=== PATIENT | male | born 1960 | race Caucasian/White ===

== ENCOUNTER 2025-06-30 18:25 | Emergency (ER) | payer OTHER, SELFPAY ==
[2025-06-30] VITALS (16 sets, daily range): BP systolic 138–195; BP diastolic 92–99; PULSE 62–96; RESP 13–22; TEMP 37; O2SAT 94–98; BMI 24.4
--- NOTE | 2025-06-30 18:37 | DI.RAD.S_ITS ---
PROCEDURE: XR CHEST 1V INDICATIONS: Chest Pain TECHNIQUE: One view of the chest was acquired. COMPARISON: None. FINDINGS: Surgical changes and devices: None. Lungs and pleura: Lungs are clear. No pleural effusions or pneumothorax. Mediastinum: Mediastinal contours appear normal. Heart size is normal. Bones and chest wall: No suspicious bony lesions. Overlying soft tissues appear unremarkable. IMPRESSION: No acute cardiopulmonary abnormality is seen. Dictated by: Messi Glynn M.D. on 06/30/2025 at 19:25 Approved by: Messi Glynn M.D. on 06/30/2025 at 19:25
--- NOTE | 2025-06-30 18:37 | EKG_ITS ---
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
[2025-06-30] MEDS: ASPIRIN 81 MG CHEW TAB 324 MG PO (18:40)
[2025-06-30 19:16] LABS: Add Manual Diff / Slide Review NO; Hematocrit 43.2 % (41-53); Hemoglobin 14.7 g/dL (13.5-17.5); Lymphocytes Absolute Auto 2200 /uL (1100-4500); Mean Corpuscular HGB Conc 33.9 % (30-36); Mean Corpuscular Hemoglobin 29.9 PG (26-34); Mean Corpuscular Volume 88.1 fL (80-100); Platelet Count 265 X10^3/uL (150-400)
[2025-06-30 19:32] LABS: INR 1.0 (0.9-1.3); Prothrombin Time 10.8 SECONDS (9.4-12.5)
[2025-06-30 19:35] LABS: Alanine Aminotransferase 40 IU/L (<50); Albumin 4.7 g/dL (3.5-5.0); Albumin Globulin Ratio 1.6 (1.0-2.8); Alkaline Phosphatase 56 U/L (38-126); Blood Urea Nitrogen 15 mg/dL (9-20); Calcium 8.9 mg/dL (8.4-10.2); Carbon Dioxide 26 mmol/L (22-32); Chloride 102 mmol/L (98-107); Creatine Kinase 96 U/L (55-170); Estimated Glomerular Filt Rate > 60 mL/min (>60); Globulin 3.0 g/dL (1.7-4.1); Glucose 108 mg/dL (70-99); HEMOLYSIS 26 (0-50); Lipase 96 U/L (23-300); Magnesium 1.7 mg/dL (1.6-2.3); PTT Partial Thromboplastin Tim 26 SECONDS (25.1-36.5); Potassium 3.7 mmol/L (3.4-5.1); Sodium 138 mmol/L (137-145); Total Protein 7.7 g/dL (6.3-8.2)
[2025-06-30 19:47] LABS: NT-proBNP (BNP-Adult 18+) 24 pg/mL (<125); Troponin I < 0.012 ng/mL (0.01-0.034)
--- NOTE | 2025-06-30 21:36 | ED.CHESTPAIN ---
HPI - Chest Pain General Chief Complaint: Chest Pain Stated Complaint: Tightness in chest/tingling in arms/shaky Time Seen by Provider: 06/30/25 18:27 Source: patient Mode of arrival: Ambulatory Limitations: no limitations History of Present Illness HPI narrative: 64-year-old male with no known history of coronary artery disease, has previous coronary scanning that showed some kind of vascular problem but no coronary interventions, history of hiatal hernia. Since 6:00 p.m. today he has had chest discomfort that was more intense earlier today, nonpleuritic, not associated with nausea or vomiting or diaphoresis, nonradiating. Over the last couple of weeks he has had it 2 episodes of tunnel vision like sensation that he might pass out, with fast heart rate sensation subsequent to onset of symptoms, did not actually pass out, no specific treatments. Specific workup for this problem. You recently had driving from the [place] and vacation area. No calf pain or leg swelling problems. No history of blood clots to legs or lungs. No history of fast or slow heart rate problems or abnormal heart rhythms known. No history of stroke or TIA symptoms. Related Data Allergies Allergy/AdvReac Type Severity Reaction Status Date / Time No Known Allergies Allergy Verified 06/30/25 18:37 Patient History Social History Smoking Status: Never smoker Smoking Status: Never smoker Exam Narrative Exam Narrative: GENERAL: Well-developed patient, in mild distress. HEAD: Atraumatic. Normocephalic. EYES: Pupils equal round and reactive. Extraocular motions intact. No scleral icterus. No injection or drainage. ENT: Nose without bleeding, purulent drainage. Throat without erythema, tonsillar hypertrophy or exudate. Airway patent. NECK: Trachea midline. Non tender CARDIOVASCULAR: Regular rate and rhythm without murmurs, gallops, or rubs. RESPIRATORY: Clear to auscultation. Breath sounds equal bilaterally. No wheezes, rales, or rhonchi. GASTROINTESTINAL: Abdomen soft, non-tender, nondistended. EXTREMITIES: No edema or joint tenderness. BACK: Nontender without deformity or crepitance. No flank tenderness. NEURO: AOx3. Motor functions grossly nonfocal. SKIN: No rash or erythema of visible areas Initial Vital Signs Initial Vital Signs: Vital Signs Temperature 98.6 F 06/30/25 18:33 Pulse Rate 96 H 06/30/25 18:33 Respiratory Rate 18 06/30/25 18:33 Blood Pressure 180/98 H 06/30/25 18:33 Pulse Oximetry 98 06/30/25 18:33 Oxygen Delivery Method Room Air 06/30/25 18:33 Scores HEART Score Heart Score history: Slightly Suspicious Heart Score EKG: Normal Heart Score Age: 45-64 years old Heart Score risk factors: > 3 risk factors or hx of atherosclerotic disease Heart Score troponin: < or = to normal limit Heart Score Total: 3 Course Orders Ordered: ED Orders 06/30/25 21:34 Troponin I Stat 06/30/25 22:38 CT head/brain wo con Stat 06/30/25 22:39 CT abdomen pelvis w con Stat CT angio chest PE protocol Stat Discontinued Medications Aspirin (Aspirin 81 Mg Chew Tab) 324 mg PO NOW ONE Stop: 06/30/25 18:38 Last Admin: 06/30/25 18:40 Dose: 324 mg Documented By: MATT Sodium Chloride (Normal Saline 0.9%) 1,000 mls @ 500 mls/hr IV BOLUS ONE Stop: 07/01/25 00:38 Last Infusion: 07/01/25 00:59 Dose: Infused Documented By: Admin: 06/30/25 23:14 Dose: 500 mls/hr Documented By: JULIANNE Pantoprazole Sodium (Pantoprazole 40 Mg Vial) 40 mg IV NOW ONE Stop: 06/30/25 22:46 Last Admin: 06/30/25 23:14 Dose: 40 mg Documented By: JULIANNE Vital Signs Vital signs: Vital Signs - 8 hr 06/30/25 21:00 06/30/25 21:00 06/30/25 21:10 Pulse Rate 68 Respiratory Rate 18 Blood Pressure 157/92 H 162/96 H Pulse Oximetry 97 06/30/25 21:10 06/30/25 21:20 06/30/25 21:20 Pulse Rate 64 64 Respiratory Rate 14 14 Blood Pressure 154/93 H Pulse Oximetry 97 97 06/30/25 21:30 06/30/25 21:30 06/30/25 21:40 Pulse Rate 66 Respiratory Rate 14 Blood Pressure 157/96 H 151/93 H Pulse Oximetry 97 06/30/25 21:40 06/30/25 21:50 06/30/25 21:50 Pulse Rate 63 62 Respiratory Rate 15 16 Blood Pressure 149/94 H Pulse Oximetry 94 94 06/30/25 22:00 06/30/25 22:00 06/30/25 22:10 Pulse Rate 66 65 Respiratory Rate 16 13 Blood Pressure 145/95 H Pulse Oximetry 95 96 06/30/25 22:10 06/30/25 22:20 06/30/25 22:20 Pulse Rate 64 Respiratory Rate 15 Blood Pressure 150/95 H 138/95 H Pulse Oximetry 97 06/30/25 22:30 06/30/25 23:12 06/30/25 23:22 Pulse Rate 66 74 67 Respiratory Rate 18 21 22 Blood Pressure Pulse Oximetry 96 96 06/30/25 23:22 06/30/25 23:30 06/30/25 23:30 Pulse Rate 65 Respiratory Rate 20 Blood Pressure 154/99 H 152/92 H Pulse Oximetry 97 07/01/25 00:00 07/01/25 00:00 07/01/25 00:21 Pulse Rate 65 Respiratory Rate 17 Blood Pressure 146/95 H 155/81 H Pulse Oximetry 96 07/01/25 00:21 07/01/25 00:30 07/01/25 00:31 Pulse Rate 59 L 64 65 Respiratory Rate 18 23 21 Blood Pressure Pulse Oximetry 96 96 97 07/01/25 00:31 Pulse Rate Respiratory Rate Blood Pressure 157/93 H Pulse Oximetry MDM - Chest Pain Lab Data Attestation: I reviewed the patient's lab results. Lab results narrative: White blood cell count 5900, hemoglobin 14.5, platelets adequate. Glucose 108. Normal renal function, serum CO2, electrolytes. Liver functions and lipase normal. Troponin negative/unmeasurable x2 interval studies. BNP normal. 06/30/25 18:50 06/30/25 18:50 Labs: Lab Results 06/30/25 06/30/25 Range/Units 18:50 21:34 WBC 5.9 (4.5-11.0) X10^3/uL RBC 4.91 (4.5-5.9) X10^6/uL Hgb 14.7 (13.5-17.5) g/dL Hct 43.2 (41-53) % MCV 88.1 (80-100) fL MCH 29.9 (26-34) PG MCHC 33.9 (30-36) % RDW 13.6 (11.6-14.8) % Plt Count 265 (150-400) X10^3/uL Neut % (Auto) 48.5 L (50-75) % Lymph % (Auto) 36.9 (25-40) % [place] % (Auto) 9.5 (3-14) % Eos % (Auto) 3.7 (2-4) % Baso % (Auto) 1.4 (0-2) % Neut # (Auto) 2900 (8854-8593) /uL Lymph # (Auto) 2200 (0842-7192) /uL [place] # (Auto) 600 (0-900) /uL Eos # (Auto) 200 (0-450) /uL Baso # (Auto) 100 (0-100) /uL PT 10.8 (9.4-12.5) SECONDS INR 1.0 (0.9-1.3) APTT 26 (25.1-36.5) SECONDS D-Dimer 314 (<500) ng/ml Sodium 138 (137-145) mmol/L Potassium 3.7 (3.4-5.1) mmol/L Chloride 102 (98-107) mmol/L Carbon Dioxide 26 (22-32) mmol/L BUN 15 (9-20) mg/dL Creatinine 0.89 (0.66-1.25) mg/dL Estimated GFR > 60 (>60) mL/min BUN/Creatinine Ratio 16.9 (6-22) Glucose 108 H (70-99) mg/dL Calcium 8.9 (8.4-10.2) mg/dL Magnesium 1.7 (1.6-2.3) mg/dL Total Bilirubin 0.6 (0.2-1.3) mg/dL AST 40 (17-59) IU/L ALT 40 (<50) IU/L Alkaline Phosphatase 56 (38-126) U/L Total Creatine Kinase 96 (55-170) U/L Troponin I < 0.012 < 0.012 (0.01-0.034) ng/mL NT-Pro-B Natriuret Pep 24 (<125) pg/mL Total Protein 7.7 (6.3-8.2) g/dL Albumin 4.7 (3.5-5.0) g/dL Globulin 3.0 (1.7-4.1) g/dL Albumin/Globulin Ratio 1.6 (1.0-2.8) Lipase 96 (23-300) U/L Imaging Data Chest x-ray: Radiologist's Impression: [address] [address] XRay Report Signed Patient: Rocky Pérez MR#: [id number] : 1960 Acct:[id number] Age/Sex: 64 / M Date of Service: 06/30/25 Loc: ED Accession Number: [id number] Procedure: XR chest 1V Ordering Provider: Delroy Madden MD PROCEDURE: XR CHEST 1V INDICATIONS: Chest Pain TECHNIQUE: One view of the chest was acquired. COMPARISON: None. FINDINGS: Surgical changes and devices: None. Lungs and pleura: Lungs are clear. No pleural effusions or pneumothorax. Mediastinum: Mediastinal contours appear normal. Heart size is normal. Bones and chest wall: No suspicious bony lesions. Overlying soft tissues appear unremarkable. IMPRESSION: No acute cardiopulmonary abnormality is seen. Dictated by: Messi Glynn M.D. on 06/30/2025 at 19:25 Approved by: Messi Glynn M.D. on 06/30/2025 at 19:25 CT scan - head: Radiologist's Impression: [address] [address] [address] Scan Report Signed Patient: Rocky Pérez MR#: [id number] : 1960 Acct:[id number] Age/Sex: 64 / M Date of Service: 06/30/25 Loc: ED Accession Number: [id number] Procedure: CT head/brain wo con Ordering Provider: Delroy Madden MD PROCEDURE: CT HEAD/BRAIN WO CON INDICATIONS: intermittent near syncope, vision changes TECHNIQUE: Noncontrast 4.5 mm thick angled axial sections acquired from the foramen magnum to the vertex, with coronal and sagittal reformats. For radiation dose reduction, the following was used: automated exposure control, adjustment of mA and/or kV according to patient size. COMPARISON: None. FINDINGS: Image quality: Diagnostic. CSF spaces: Basal cisterns are patent. No extra-axial fluid collections. Ventricles are normal in size and shape. Brain: No midline shift. No intracranial mass effect or hemorrhage. [place]-white matter interface is normal. Skull and face: Calvarium and visualized facial bones are intact, without suspicious lesions. Sinuses: Visualized sinuses and mastoids are clear. IMPRESSION: No acute intracranial pathology. Dictated by: Pham Ham M.D. on 06/30/2025 at 23:23 Approved by: Pham Ham M.D. on 06/30/2025 at 23:23 CT scan - abdomen/pelvis: Radiologist's Impression: [address] [address] [address] Scan Report Signed Patient: Rocky Pérez MR#: [id number] : 1960 Acct:[id number] Age/Sex: 64 / M Date of Service: 06/30/25 Loc: ED Accession Number: [id number] Procedure: CT abdomen pelvis w con Ordering Provider: Delroy Madden MD PROCEDURE: CT ABDOMEN PELVIS W CON INDICATIONS: chest abd pain TECHNIQUE: After the administration of intravenous contrast, axial sections acquired from the lung bases to the pubic symphysis. Coronal and sagittal reformats were performed. For radiation dose reduction, the following was used: automated exposure control, adjustment of mA and/or kV according to patient size. COMPARISON: [facility], CT, CT ANGIO CHEST PE PROTOCOL, 06/30/2025, 22:44. FINDINGS: Image quality: Diagnostic. Lower Chest: No significant findings. ABDOMEN: Liver: Low-attenuation hepatic foci. The larger lesions are most suggestive of simple cysts. The smaller foci are too small to definitively characterize. Steatosis. Gallbladder: No radiopaque gallstones or wall thickening. Biliary ducts: No biliary dilation. Pancreas: No ductal dilation. Spleen: Size is within normal limits. Adrenal Glands: No adrenal nodules. Kidneys and Ureters: No hydronephrosis. No solid mass. No complex renal cystic lesion which requires follow up. Stomach and Bowel: Normal colonic caliber, without significant wall thickening. Hiatal hernia. Moderate colonic stool. No obstruction. Colonic diverticula are present without inflammatory change. Peritoneum: No abnormal intraperitoneal fluid. No free air. Ventral Wall: No significant ventral hernia. Abdominal Nodes: No retroperitoneal or mesenteric adenopathy by size criteria. Vessels: Aorta and inferior vena cava are normal in size. PELVIS: Pelvic Organs: Unremarkable. Bladder: No bladder wall thickening, accounting for underdistention. Pelvic Nodes: No enlarged lymph nodes. Miscellaneous: No inguinal hernias are seen. Bones: No aggressive osseous abnormality. IMPRESSION: Diverticulosis. Moderate colonic stool without obstruction. Dictated by: Pham Ham M.D. on 06/30/2025 at 23:25 Approved by: Pham Ham M.D. on 06/30/2025 at 23:28 CTA chest PE protocol.: Radiologist's Impression: [address] [address] [address] Scan Report Signed Patient: Rocky Pérez MR#: [id number] : 1960 Acct:[id number] Age/Sex: 64 / M Date of Service: 06/30/25 Loc: ED Accession Number: [id number] Procedure: CT angio chest PE protocol Ordering Provider: Delroy Madden MD PROCEDURE: CT ANGIO CHEST PE PROTOCOL INDICATIONS: presyncope, recent long driving, eval for PE TECHNIQUE: After the administration of intravenous contrast, 2 mm thick sections acquired from the pulmonary apices to the posterior costophrenic angles. 3-dimensional maximum intensity projection (MIP) coronal and sagittal reformats were then acquired through the thorax. For radiation dose reduction, the following was used: automated exposure control, adjustment of mA and/or kV according to patient size. COMPARISON: None. FINDINGS: Image quality: Diagnostic. Pulmonary arteries: Pulmonary arteries are normal in size, and demonstrate no intraluminal filling defects to suggest central pulmonary embolism. Lower Neck: No enlarged lymph nodes. Thyroid: No thyroid nodules which require sonographic follow up, per consensus guidelines. Axillae: No enlarged lymph nodes. Chest Wall: Unremarkable. Bones: Unremarkable. Lungs and Pleura: No pneumothorax or pleural effusions. No consolidation or suspicious nodules. Heart: Heart size is normal. No pericardial effusion. Thoracic Vessels: No aortic aneurysm. Mediastinum and Aretha: Anterior mediastinal soft tissue nodule measuring 1.3 cm. No priors. Esophagus: No wall thickening. Mild hiatal hernia. Upper Abdomen: Low-attenuation hepatic focus likely simple cyst. IMPRESSION: No pulmonary embolus. 1.3 cm soft tissue nodule within the anterior mediastinum. This may represent a prominent lymph node. However, given location other etiologies including malignancy cannot be excluded. Short interval follow-up, biopsy or PET scan is recommended. Dictated by: Pham Ham M.D. on 06/30/2025 at 23:23 Approved by: Pham Ham M.D. on 06/30/2025 at 23:25 ECG Data Attestation: I personally reviewed and interpreted this ECG as follows: Interpretation: 1845, sinus rhythm with occasional PVCs, nonspecific ST-T changes. Ventricular response rate 89. IL 134, QRS 84, QTC 455. MDM Narrative Medical decision making narrative: 64-year-old male with history of hiatal hernia, no known CAD, has chest discomfort since earlier today, recent drive from [facility], no leg pain or swelling symptoms. Also has had intermittent 2 weeks of fast heart rate sensation and near-syncope with tunnel vision like changes. No headaches. Nonfocal neuro exam. Afebrile, sirs screen negative. Given oral aspirin. HEART Score = 3. EKG without obvious ischemic changes, sinus rhythm. Chest x-ray no acute changes. See radiology report. Lab data: White blood cell count 5900, hemoglobin 14.5, platelets adequate. Glucose 108. Normal renal function, serum CO2, electrolytes. Liver functions and lipase normal. Troponin negative/unmeasurable x2 interval studies. BNP normal. CT head noncontrast study. No acute changes. See radiology report. CT angiogram chest, no PE, no aortic syndrome, no acute changes. Mediastinal node/small mass noted, further workup as an outpatient. See radiology report. CT abdomen and pelvis, no acute changes. See radiology report. Copy of reports provided to patient with discussion. Further workup as an outpatient for now. Consider cardiac monitoring. 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 Could consider also further neuro testing as needed, that might include CTA head and neck vessels, MRI of the brain. Discharged home with family. Follow up with Cardiology as above, and with PCP, to expedite further workup as an outpatient. Return precautions discussed. Discharge Plan Departure Patient Disposition: Home Clinical Impression: Chest pain, Heart palpitations, Near syncope Activity Restrictions/Additional Instructions: Chest pain earlier today unclear etiology, no known coronary artery disease. Also intermittent last couple of weeks tunnel vision like sensation with fast heart rate palpitations. No actual passing out episode. EKG and serial blood tests tonight not sure suggestive of heart attack, normal sinus rhythm noted. Imaging studies chest x-ray, CT head, CT angiogram chest, CT abdomen and pelvis showed no acute changes. You did have a fair amount of colonic stool, consider laxative therapy, unclear if this is related to any of your symptoms however. You also had a mediastinal mass 1.3 cm small, that might be a nodule or benign lesion, but could be early cancerous change, further workup as an outpatient. Consider further workup as an outpatient, local cardiology contact information provided. You might end up getting echocardiogram and/or cardiac stress testing. Consider ambulatory cardiac heart rate/rhythm monitoring, which your primary care doctor can order for you. Consider further neurological workup as an outpatient as needed. Consider taking aspirin daily until further workup coordinated. Return earlier to this/nearest emergency department for any change worsening symptoms or any concerns prior. Referrals: Marcell Patten MD [Physician, Cardiology] Viktoria Resendez PA-C [Primary Care Provider, Medical] Stand Alone Forms: Patient Portal/API
[2025-06-30 22:25] LABS: Troponin I < 0.012 ng/mL (0.01-0.034)
--- NOTE | 2025-06-30 22:38 | DI.CT.S_ITS ---
PROCEDURE: CT HEAD/BRAIN WO CON INDICATIONS: intermittent near syncope, vision changes TECHNIQUE: Noncontrast 4.5 mm thick angled axial sections acquired from the foramen magnum to the vertex, with coronal and sagittal reformats. For radiation dose reduction, the following was used: automated exposure control, adjustment of mA and/or kV according to patient size. COMPARISON: None. FINDINGS: Image quality: Diagnostic. CSF spaces: Basal cisterns are patent. No extra-axial fluid collections. Ventricles are normal in size and shape. Brain: No midline shift. No intracranial mass effect or hemorrhage. [place]- white matter interface is normal. Skull and face: Calvarium and visualized facial bones are intact, without suspicious lesions. Sinuses: Visualized sinuses and mastoids are clear. IMPRESSION: No acute intracranial pathology. Dictated by: Pham Ham M.D. on 06/30/2025 at 23:23 Approved by: Pham Ham M.D. on 06/30/2025 at 23:23
--- NOTE | 2025-06-30 22:39 | DI.CT.S_ITS ---
PROCEDURE: CT ABDOMEN PELVIS W CON INDICATIONS: chest abd pain TECHNIQUE: After the administration of intravenous contrast, axial sections acquired from the lung bases to the pubic symphysis. Coronal and sagittal reformats were performed. For radiation dose reduction, the following was used: automated exposure control, adjustment of mA and/or kV according to patient size. COMPARISON: [facility], CT, CT ANGIO CHEST PE PROTOCOL, 06/30/2025, 22:44. FINDINGS: Image quality: Diagnostic. Lower Chest: No significant findings. ABDOMEN: Liver: Low-attenuation hepatic foci. The larger lesions are most suggestive of simple cysts. The smaller foci are too small to definitively characterize. Steatosis. Gallbladder: No radiopaque gallstones or wall thickening. Biliary ducts: No biliary dilation. Pancreas: No ductal dilation. Spleen: Size is within normal limits. Adrenal Glands: No adrenal nodules. Kidneys and Ureters: No hydronephrosis. No solid mass. No complex renal cystic lesion which requires follow up. Stomach and Bowel: Normal colonic caliber, without significant wall thickening. Hiatal hernia. Moderate colonic stool. No obstruction. Colonic diverticula are present without inflammatory change. Peritoneum: No abnormal intraperitoneal fluid. No free air. Ventral Wall: No significant ventral hernia. Abdominal Nodes: No retroperitoneal or mesenteric adenopathy by size criteria. Vessels: Aorta and inferior vena cava are normal in size. PELVIS: Pelvic Organs: Unremarkable. Bladder: No bladder wall thickening, accounting for underdistention. Pelvic Nodes: No enlarged lymph nodes. Miscellaneous: No inguinal hernias are seen. Bones: No aggressive osseous abnormality. IMPRESSION: Diverticulosis. Moderate colonic stool without obstruction. Dictated by: Pham Ham M.D. on 06/30/2025 at 23:25 Approved by: Pham Ham M.D. on 06/30/2025 at 23:28
--- NOTE | 2025-06-30 22:39 | DI.CT.S_ITS ---
PROCEDURE: CT ANGIO CHEST PE PROTOCOL INDICATIONS: presyncope, recent long driving, eval for PE TECHNIQUE: After the administration of intravenous contrast, 2 mm thick sections acquired from the pulmonary apices to the posterior costophrenic angles. 3-dimensional maximum intensity projection (MIP) coronal and sagittal reformats were then acquired through the thorax. For radiation dose reduction, the following was used: automated exposure control, adjustment of mA and/or kV according to patient size. COMPARISON: None. FINDINGS: Image quality: Diagnostic. Pulmonary arteries: Pulmonary arteries are normal in size, and demonstrate no intraluminal filling defects to suggest central pulmonary embolism. Lower Neck: No enlarged lymph nodes. Thyroid: No thyroid nodules which require sonographic follow up, per consensus guidelines. Axillae: No enlarged lymph nodes. Chest Wall: Unremarkable. Bones: Unremarkable. Lungs and Pleura: No pneumothorax or pleural effusions. No consolidation or suspicious nodules. Heart: Heart size is normal. No pericardial effusion. Thoracic Vessels: No aortic aneurysm. Mediastinum and Aretha: Anterior mediastinal soft tissue nodule measuring 1.3 cm. No priors. Esophagus: No wall thickening. Mild hiatal hernia. Upper Abdomen: Low-attenuation hepatic focus likely simple cyst. IMPRESSION: No pulmonary embolus. 1.3 cm soft tissue nodule within the anterior mediastinum. This may represent a prominent lymph node. However, given location other etiologies including malignancy cannot be excluded. Short interval follow-up, biopsy or PET scan is recommended. Dictated by: Pham Ham M.D. on 06/30/2025 at 23:23 Approved by: Pham Ham M.D. on 06/30/2025 at 23:25
[2025-06-30] MEDS: SODIUM CHLORIDE 0.9% 1,000 ML 500 ML IV (23:14)
[2025-06-30] MEDS: PANTOPRAZOLE 40 MG VIAL IV (23:14)
[2025-07-01] VITALS: BP 146/95; PULSE 65; RESP 17; O2SAT 96
[2025-07-01 00:21] VITALS: BP 155/81; PULSE 59; RESP 18; O2SAT 96
[2025-07-01 00:30] VITALS: PULSE 64; RESP 23; O2SAT 96
[2025-07-01 00:31] VITALS: BP 157/93; PULSE 65; RESP 21; O2SAT 97
== END 2025-07-01 01:10 | disposition home or self-care (01) ==
PROVIDERS: Emergency Provider Emergency Medicine; PCP Physician Assistant
DX: R07.9 Chest pain, unspecified (principal); R00.2 Palpitations; R55 Syncope and collapse
CPT/HCPCS: 36415; 70450; 71045; 71275; 74177; 80053; 82550; 83690; 83735; 83880; 84484; 85025; 85379; 85610; 85730; 93005; 96361; 96374; 99284; J2470; Q9967

== ENCOUNTER 2025-07-01 22:09 | Observation (INO) | payer OTHER, SELFPAY ==
--- NOTE | 2025-07-01 22:14 | EKG_ITS ---
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
--- NOTE | 2025-07-01 22:14 | DI.RAD.S_ITS ---
PROCEDURE: XR CHEST 1V INDICATIONS: Chest Pain TECHNIQUE: One view of the chest was acquired. COMPARISON: [facility], CR, XR CHEST 1V, 06/30/2025, 18:43. FINDINGS: Surgical changes and devices: None. Lungs and pleura: Lungs are clear. No pleural effusions or pneumothorax. Mediastinum: Mediastinal contours appear normal. Heart size is normal. Bones and chest wall: No suspicious bony lesions. Overlying soft tissues appear unremarkable. IMPRESSION: No acute pulmonary process. Dictated by: Pham Ham M.D. on 07/01/2025 at 22:51 Approved by: Pham Ham M.D. on 07/01/2025 at 22:52
[2025-07-01 22:17] VITALS: BP 177/94; PULSE 81; RESP 18; TEMP 36.4; O2SAT 98; BMI 25.0
[2025-07-01 22:58] VITALS: PULSE 69
[2025-07-01 23:00] VITALS: BP 152/87; PULSE 65; RESP 17; O2SAT 99
[2025-07-01 23:03] LABS: Add Manual Diff / Slide Review NO; Hematocrit 41.2 % (41-53); Hemoglobin 14.1 g/dL (13.5-17.5); Lymphocytes Absolute Auto 1300 /uL (1100-4500); Mean Corpuscular HGB Conc 34.2 % (30-36); Mean Corpuscular Hemoglobin 29.6 PG (26-34); Mean Corpuscular Volume 86.5 fL (80-100); Platelet Count 245 X10^3/uL (150-400)
[2025-07-01 23:07] LABS: INR 1.0 (0.9-1.3); Prothrombin Time 11.2 SECONDS (9.4-12.5)
[2025-07-01 23:10] LABS: PTT Partial Thromboplastin Tim 28 SECONDS (25.1-36.5)
[2025-07-01 23:12] LABS: Alanine Aminotransferase 37 IU/L (<50); Albumin 4.6 g/dL (3.5-5.0); Albumin Globulin Ratio 1.6 (1.0-2.8); Alkaline Phosphatase 58 U/L (38-126); Blood Urea Nitrogen 14 mg/dL (9-20); Calcium 9.0 mg/dL (8.4-10.2); Carbon Dioxide 27 mmol/L (22-32); Chloride 103 mmol/L (98-107); Creatine Kinase 125 U/L (55-170); Estimated Glomerular Filt Rate > 60 mL/min (>60); Globulin 2.9 g/dL (1.7-4.1); Glucose 104 mg/dL (70-99); HEMOLYSIS < 15 (0-50); Lipase 125 U/L (23-300); Magnesium 1.9 mg/dL (1.6-2.3); Potassium 4.0 mmol/L (3.4-5.1); Sodium 136 mmol/L (137-145); Total Protein 7.5 g/dL (6.3-8.2)
--- NOTE | 2025-07-01 23:13 | ED.CHESTPAIN ---
HPI - Chest Pain General Chief Complaint: Chest Pain Stated Complaint: prior chest pain, b/p changes after eating Time Seen by Provider: 07/01/25 23:12 Source: patient Mode of arrival: Ambulatory Limitations: no limitations History of Present Illness HPI narrative: 64-year-old male with no known coronary artery disease seen by me here yesterday with chest pain intermittent, associated with flushing, some diaphoresis, on previous evaluation had EKG and serial troponins negative, CT angiogram chest and abdomen also negative, was advised to have further follow up as an outpatient, through the day today has had 2 more events of intermittent left anterior chest discomfort with some flushing sensation. Currently chest pain free. Currently without any nausea or vomiting or diaphoresis. Related Data Home Medications ?Medication ?Instructions ?Recorded ?Confirmed amlodipine 5 mg tablet 5 mg PO DAILY 07/01/25 07/01/25 omeprazole 20 mg capsule,delayed 20 mg PO DAILY 07/01/25 07/01/25 release rosuvastatin 20 mg tablet 20 mg PO DAILY 07/01/25 07/01/25 Allergies Allergy/AdvReac Type Severity Reaction Status Date / Time No Known Allergies Allergy Verified 06/30/25 18:37 Exam Narrative Exam Narrative: GENERAL: Well-developed patient, in mild distress. HEAD: Atraumatic. Normocephalic. EYES: Pupils equal round and reactive. Extraocular motions intact. No scleral icterus. No injection or drainage. ENT: Nose without bleeding, purulent drainage. Throat without erythema, tonsillar hypertrophy or exudate. Airway patent. NECK: Trachea midline. Non tender CARDIOVASCULAR: Regular rate and rhythm without murmurs, gallops, or rubs. RESPIRATORY: Clear to auscultation. Breath sounds equal bilaterally. No wheezes, rales, or rhonchi. GASTROINTESTINAL: Abdomen soft, non-tender, nondistended. EXTREMITIES: No edema or joint tenderness. BACK: Nontender without deformity or crepitance. No flank tenderness. NEURO: AOx3. Motor functions grossly nonfocal. SKIN: No rash or erythema of visible areas Initial Vital Signs Initial Vital Signs: Vital Signs Temperature 97.6 F 07/01/25 22:17 Pulse Rate 81 07/01/25 22:17 Respiratory Rate 18 07/01/25 22:17 Blood Pressure 177/94 H 07/01/25 22:17 Pulse Oximetry 98 07/01/25 22:17 Oxygen Delivery Method Room Air 07/01/25 22:17 Scores HEART Score Heart Score history: Moderately Suspicious Heart Score EKG: Normal Heart Score Age: 45-64 years old Heart Score risk factors: 1-2 risk factors Heart Score troponin: < or = to normal limit Heart Score Total: 3 Course Orders Ordered: ED Orders 07/01/25 22:14 XR chest 1V Stat EKG-12 Lead Stat 07/01/25 22:56 Complete Blood Count AUTO DIFF Stat Comprehensive Metabolic Panel Stat Lipase Stat Magnesium Stat NT-proBNP (BNP-Adult 18+) Stat PTT Partial Thromboplastin Umesh Stat Prothrombin Time INR Stat Troponin & CK Cardiac Panel Stat 07/02/25 00:58 Troponin I Stat Acetaminophen (Acetaminophen 325 Mg Tablet) 650 mg PO Q6H PRN PRN Reason: Fever/Mild Pain (1-3) Naloxone HCl (Naloxone 0.4 Mg/Ml Vial) 0.2 mg IV Q2MIN PRN PRN Reason: Opiate Reversal Ondansetron HCl (Ondansetron 4 Mg/2 Ml Inj) 4 mg IV Q8HR PRN PRN Reason: Nausea And Vomiting Discontinued Medications Aspirin (Aspirin 81 Mg Chew Tab) 324 mg PO NOW ONE Stop: 07/01/25 22:15 Last Admin: 07/01/25 23:16 Dose: 324 mg Documented By: CHRISTOPHER Aspirin (Aspirin 81 Mg Chew Tab) 324 mg PO NOW ONE Stop: 07/01/25 23:21 Last Admin: 07/01/25 23:26 Dose: Not Given Documented By: CHRISTOPHER Vital Signs Vital signs: Vital Signs - 8 hr 07/01/25 22:17 07/01/25 22:58 07/01/25 23:00 Temperature 97.6 F Pulse Rate 81 69 Respiratory Rate 18 Blood Pressure 177/94 H 152/87 H Pulse Oximetry 98 Oxygen Delivery Method Room Air 07/01/25 23:00 07/01/25 23:30 07/01/25 23:30 Temperature Pulse Rate 65 67 Respiratory Rate 17 17 Blood Pressure 147/87 H Pulse Oximetry 99 96 Oxygen Delivery Method 07/02/25 00:00 07/02/25 00:00 07/02/25 00:30 Temperature Pulse Rate 62 Respiratory Rate 16 Blood Pressure 137/88 128/85 Pulse Oximetry 97 Oxygen Delivery Method 07/02/25 00:30 07/02/25 00:59 07/02/25 00:59 Temperature Pulse Rate 61 60 Respiratory Rate 16 20 Blood Pressure 153/90 H Pulse Oximetry 95 97 Oxygen Delivery Method 07/02/25 01:00 07/02/25 01:00 07/02/25 01:30 Temperature Pulse Rate 62 60 Respiratory Rate 10 L 15 Blood Pressure 146/90 H Pulse Oximetry 98 97 Oxygen Delivery Method 07/02/25 01:30 07/02/25 02:00 07/02/25 02:00 Temperature Pulse Rate 58 L Respiratory Rate 11 L Blood Pressure 146/89 H 148/93 H Pulse Oximetry 97 Oxygen Delivery Method MDM - Chest Pain Lab Data Attestation: I reviewed the patient's lab results. Lab results narrative: White blood cell count 5000, hemoglobin 14.1, platelets adequate. Glucose 104. Normal renal function, serum CO2, potassium. Sodium 136 slight low. Liver functions and lipase normal. Troponin 0.017 measurable but low. 07/01/25 22:56 07/01/25 22:56 Labs: Lab Results 07/01/25 07/02/25 Range/Units 22:56 00:58 WBC 5.0 (4.5-11.0) X10^3/uL RBC 4.76 (4.5-5.9) X10^6/uL Hgb 14.1 (13.5-17.5) g/dL Hct 41.2 (41-53) % MCV 86.5 (80-100) fL MCH 29.6 (26-34) PG MCHC 34.2 (30-36) % RDW 13.7 (11.6-14.8) % Plt Count 245 (150-400) X10^3/uL Neut % (Auto) 63.0 (50-75) % Lymph % (Auto) 25.5 (25-40) % [place] % (Auto) 8.4 (3-14) % Eos % (Auto) 1.7 L (2-4) % Baso % (Auto) 1.4 (0-2) % Neut # (Auto) 3200 (7275-3161) /uL Lymph # (Auto) 1300 (2479-5778) /uL [place] # (Auto) 400 (0-900) /uL Eos # (Auto) 100 (0-450) /uL Baso # (Auto) 100 (0-100) /uL PT 11.2 (9.4-12.5) SECONDS INR 1.0 (0.9-1.3) APTT 28 (25.1-36.5) SECONDS Sodium 136 L (137-145) mmol/L Potassium 4.0 (3.4-5.1) mmol/L Chloride 103 (98-107) mmol/L Carbon Dioxide 27 (22-32) mmol/L BUN 14 (9-20) mg/dL Creatinine 0.92 (0.66-1.25) mg/dL Estimated GFR > 60 (>60) mL/min BUN/Creatinine Ratio 15.2 (6-22) Glucose 104 H (70-99) mg/dL Calcium 9.0 (8.4-10.2) mg/dL Magnesium 1.9 (1.6-2.3) mg/dL Total Bilirubin 0.6 (0.2-1.3) mg/dL AST 32 (17-59) IU/L ALT 37 (<50) IU/L Alkaline Phosphatase 58 (38-126) U/L Total Creatine Kinase 125 (55-170) U/L Troponin I 0.017 < 0.012 (0.01-0.034) ng/mL NT-Pro-B Natriuret Pep 28 (<125) pg/mL Total Protein 7.5 (6.3-8.2) g/dL Albumin 4.6 (3.5-5.0) g/dL Globulin 2.9 (1.7-4.1) g/dL Albumin/Globulin Ratio 1.6 (1.0-2.8) Lipase 125 (23-300) U/L Imaging Data Chest x-ray: Radiologist's Impression: [address] [address] XRay Report Signed Patient: Rocky Pérez MR#: [id number] : 1960 Acct:[id number] Age/Sex: 64 / M Date of Service: 07/01/25 Loc: ED Accession Number: [id number] Procedure: XR chest 1V Ordering Provider: Fabian Márquez MD PROCEDURE: XR CHEST 1V INDICATIONS: Chest Pain TECHNIQUE: One view of the chest was acquired. COMPARISON: [facility], , XR CHEST 1V, 06/30/2025, 18:43. FINDINGS: Surgical changes and devices: None. Lungs and pleura: Lungs are clear. No pleural effusions or pneumothorax. Mediastinum: Mediastinal contours appear normal. Heart size is normal. Bones and chest wall: No suspicious bony lesions. Overlying soft tissues appear unremarkable. IMPRESSION: No acute pulmonary process. Dictated by: Pham Ham M.D. on 07/01/2025 at 22:51 Approved by: Pham Ham M.D. on 07/01/2025 at 22:52 ECG Data Attestation: I personally reviewed and interpreted this ECG as follows: Interpretation: 2218, normal sinus rhythm with a rate of 81, no obvious ST segment elevation or depression changes. [place] 136, QRS 86, QTC 448. MDM Narrative Medical decision making narrative: 64-year-old male with intermittent chest pain in heart racing symptoms, seen here yesterday with EKG and serial troponins, CTA chest abdomen and pelvis negative, still having similar events. Currently not having any symptoms. Screening EKG without obvious ischemic changes, normal intervals, sinus rhythm. DDx consider ACS, tachyarrhythmia, bradyarrhythmia, panic attacks, other. HEART Score = 3. Initial lab data: White blood cell count 5000, hemoglobin 14.1, platelets adequate. Glucose 104. Normal renal function, serum CO2, potassium. Sodium 136 slight low. Liver functions and lipase normal. Troponin 0.017 measurable but low. No cardiac stress testing available later this morning Friday, or over the weekend tomorrow Friday. Repeat troponin negative/unmeasurable. Results discussed with patient, copies of labs and chest x-ray report and EKG given to patient. We will contact Cardiology for follow up plan. 0130, case discussed with cardiology Dr. Patten, who suggests given the frequency of these events that we have patient admitted here on telemetry to see if we can capture, possible tachy-maximilian syndrome, or other problem. He can consult if inpatient. You can also see patient in close follow up and arrange further cardiac telemetry/event monitoring, and follow up stress testing as needed. Plodding Machine Operator recommendations discussed with patient/, he would be interested in admission for 24 hours telemetry monitoring as above, and to expedite consultation with Cardiology. We will contact hospitalist. 0215, case discussed with hospitalist Dr. Alejandre who accepts patient for admission to observation Critical Care Time Critical Care Time Critical Care Time: Yes Total Critical Care Time: 35 Attestation: The high probability of a clinically significant, sudden or life threatening deterioration of the [cardiopulmonary] system(s) required my full and direct attention, intervention and personal management. The aggregate critical care time was [] minutes. This time is in addition to time spent performing reported procedures but includes the following: [x] Data Review and interpretation [x] Patient assessment and monitoring of vital signs [x] Documentation [x] Medication orders and management Discharge Plan Departure Patient Disposition: Admitted as Observation Clinical Impression: Chest pain, Heart palpitations, Near syncope Admit Date/Time: 07/02/25 02:14 Admit Provider: Ortiz Alejandre
[2025-07-01] MEDS: ASPIRIN 81 MG CHEW TAB 324 MG PO (23:16)
[2025-07-01 23:23] LABS: NT-proBNP (BNP-Adult 18+) 28 pg/mL (<125); Troponin I 0.017 ng/mL (0.01-0.034)
[2025-07-01 23:30] VITALS: BP 147/87; PULSE 67; RESP 17; O2SAT 96
--- NOTE | 2025-07-01 23:48 | PC.NURSE ---
pt able to ambulate on own to restroom with steady gait
[2025-07-02] VITALS (10 sets, daily range): BP systolic 123–153; BP diastolic 80–93; PULSE 58–68; RESP 10–20; TEMP 35.9–36.3; O2SAT 95–100; BMI 25.0
--- NOTE | 2025-07-02 | DI.ECHO.S_ITS ---
[facility]---------+ [facility] : : [address] : [address] : : [id number] : : Phone: [phone] Echocardiogram Report + + :Name: DAYA DIAS Study Date: 07/02/2025 Height: 72 in : :Hospital ReadingLocation: Weight: 185 lb : : Gender: Male BSA: 2.1 m2 : :: 1960 Age: 64 yrs BP: 123/80 mmHg: :Reason For Study: CHEST PAIN : :Ordering Physician: RICHARD, : :LETICIA Performed By: Harvinder Dawson : :Referring: LETICIA RAMOS : + + Interpretation Summary The ejection fraction is estimated to be 55-60%. Diastolic parameters suggest probable normal left ventricular diastolic function and normal filling pressures. The right ventricle is normal in size and function. No valvular abnormalities. Pulmonary artery pressures cannot be estimated because of the lack of a measurable TR jet velocity but the IVC suggests a CVP of around 3 mmHg. Procedure: A two-dimensional transthoracic echocardiogram with color flow and Doppler was performed. The study quality was technically good. There is no prior echocardiogram noted for this patient. The patient was in normal sinus rhythm during the exam. Left Ventricle: The left ventricle is normal in size. There is normal left ventricular wall thickness. There is no ventricular septal defect visualized. The ejection fraction is estimated to be 55-60%. There are no focal wall motion abnormalities. Diastolic parameters suggest probable normal left ventricular diastolic function and normal filling pressures. Right Ventricle: The right ventricle is normal in size and function. Atria: The left atrial size is normal. Right atrial size is normal. There is no Doppler evidence for an interatrial shunt. Mitral Valve: The mitral valve leaflets appear mildly thickened. There is trace mitral regurgitation. Aortic Valve: The aortic valve opens well. There is no aortic valve stenosis. No aortic regurgitation is present. Tricuspid Valve: The tricuspid valve leaflets are thin and pliable. No tricuspid regurgitation. Pulmonary artery pressures cannot be estimated because of the lack of a measurable TR jet velocity but the IVC suggests a CVP of around 3 mmHg. Pulmonic Valve: The pulmonic valve is not well visualized. There is no pulmonic valvular regurgitation. Great Vessels: The aortic root is normal size. The dimensions of the ascending aorta are normal. The pulmonary artery is not well visualized, but is probably normal size. The IVC is of normal diameter and collapses greater than 50% with a sniff. This suggests a low right atrial pressure of 3 mm Hg. Pericardium/ Pleura There is no pericardial effusion. There is no pleural effusion. MMode/2D Measurements & Calculations LVIDd: 5.0 cm LVOT diam: 1.8 cm LVIDs: 3.4 cm Ao root diam: 3.5 cm FS: 32.5 % asc Aorta Diam: 3.6 cm EPSS: 0.70 cm IVSd: 0.97 cm LVPWd: 0.96 cm LV holman. diameter/BSA (cm/m^2): 2.4 LV sys. diameter/BSA (cm/m^2): 1.7 LA A2 area: 19.1 cm2 RA long axis: 4.4 cm LA A4 area: 20.2 cm2 RA area: 12.5 cm2 LA length (vol): 5.8 cm RA vol: 30.2 ml LA vol: 56.6 ml RA : 14.7 ml/m2 LA vol index: 27.5 ml/m2 IVC diam: 0.96 cm RVD1 (basal): 3.4 cm RVD2 (mid): 2.6 cm TAPSE: 2.5 cm Doppler Measurements & Calculations Ao V2 max: 139.8 cm/sec LVOT Max Rigoberto: 104.7 cm/sec Ao V2 mean: 95.3 cm/sec LV V1 max P.4 mmHg Ao max P.8 mmHg LV V1 VTI: 22.7 cm Ao mean P.2 mmHg SCOTT(I,D): 2.1 cm2 Ao V2 VTI: 28.6 cm SCOTT(V,D): 2.0 cm2 sev ratio: 0.79 SCOTT indexed to BSA (cm^2/m^2): 1.0 MV E max rigoberto: 62.5 cm/sec PA V2 max: 92.8 cm/sec MV A max rigoberto: 62.7 cm/sec PA V2 mean: 67.6 cm/sec MV E/A: 1.00 PA mean P.0 mmHg Med Peak E' Rigoberto: 10.5 cm/sec PA pr(Accel): 51.6 mmHg E/E' med: 5.9 Lat Peak E' Rigoberto: 10.6 cm/sec E/E' lat: 5.9 E/e' average: 5.9 MV dec time: 0.21 sec SV(LVOT): 59.4 ml Reading Physician:02:10 PM
[2025-07-02 01:31] LABS: Troponin I < 0.012 ng/mL (0.01-0.034)
--- NOTE | 2025-07-02 04:16 | PM.HP.1 ---
History of Present Illness History of Present Illness Date Patient Seen: 07/02/25 Time Patient Seen: 04:17 Chief complaint: prior chest pain, b/p changes after eating Narrative: 64-year-old male with past medical history of hypertension, hyperlipidemia and acid reflux presents with intermittent chest pain. Per the patient's report, over the last 2 months, the patient has been having intermittent chest pain. The patient states that his chest pain usually followed after acute onset of flushing sensation and numbness and tingling in both of his hands. The patient also states that his chest pain is pressure-like/tightness across both of his chest. The patient also experienced some shortness of breath during the event and some palpitation. Otherwise the patient denies any syncope related to this chest pressure. The patient also denies any recent fever, chills, nausea, vomiting, diarrhea or dysuria. The patient has been in the ER once over the last 48 hours and this is his second visit. The patient had negative tropes x 2, no acute finding on EKG to suggest ischemia and a CT angio of the chest and abdomen that were normal. The patient was discharged from our ER 2 days ago but states that he had 2 more events and so he was concerned to come back to the ER today. The patient denies any known history of coronary disease or stroke. In the emergency room, the patient was hemodynamically stable. Again troponin negative x 2 and EKG showed no sign of acute ischemia. Other labs were relatively benign. Chest x-ray was clear. ER physician did discuss the case with missile control pilot on-call Dr. Lafleur who is recommend that we admit the patient to monitor for any arrhythmia overnight and to check another Trope in the morning. If everything comes back negative including echocardiogram Dr. Bajwa suggest that we should have the patient follow-up with him as outpatient for cardiac stress test. [facility] Social History household members: spouse Smoking Status: Never smoker Meds Home Medications and Allergies Home Medications ?Medication ?Instructions ?Recorded ?Confirmed ?Type amlodipine 5 mg tablet 5 mg PO DAILY 07/01/25 07/01/25 History omeprazole 20 mg capsule,delayed 20 mg PO DAILY 07/01/25 07/01/25 History release rosuvastatin 20 mg tablet 20 mg PO DAILY 07/01/25 07/01/25 History Allergies Allergy/AdvReac Type Severity Reaction Status Date / Time No Known Allergies Allergy Verified 06/30/25 18:37 Review of Systems Review of Systems ROS: Yes All systems reviewed with the patient and are negative except as otherwise documented Exam Vital Signs (past 8 hours): - 07/01/25 22:17 07/01/25 22:58 07/01/25 23:00 Temperature 97.6 F Pulse Rate 81 69 Respiratory Rate 18 Blood Pressure 177/94 H 152/87 H Pulse Oximetry 98 Oxygen Delivery Method Room Air 07/01/25 23:00 07/01/25 23:30 07/01/25 23:30 Temperature Pulse Rate 65 67 Respiratory Rate 17 17 Blood Pressure 147/87 H Pulse Oximetry 99 96 Oxygen Delivery Method 07/02/25 00:00 07/02/25 00:00 07/02/25 00:30 Temperature Pulse Rate 62 Respiratory Rate 16 Blood Pressure 137/88 128/85 Pulse Oximetry 97 Oxygen Delivery Method 07/02/25 00:30 07/02/25 00:59 07/02/25 00:59 Temperature Pulse Rate 61 60 Respiratory Rate 16 20 Blood Pressure 153/90 H Pulse Oximetry 95 97 Oxygen Delivery Method 07/02/25 01:00 07/02/25 01:00 07/02/25 01:30 Temperature Pulse Rate 62 60 Respiratory Rate 10 L 15 Blood Pressure 146/90 H Pulse Oximetry 98 97 Oxygen Delivery Method 07/02/25 01:30 07/02/25 02:00 07/02/25 02:00 Temperature Pulse Rate 58 L Respiratory Rate 11 L Blood Pressure 146/89 H 148/93 H Pulse Oximetry 97 Oxygen Delivery Method 07/02/25 02:30 07/02/25 02:30 07/02/25 02:40 Temperature Pulse Rate 58 L Respiratory Rate 14 Blood Pressure 140/86 Pulse Oximetry 97 Oxygen Delivery Method Room Air 07/02/25 03:00 Temperature 96.6 F L Pulse Rate 68 Respiratory Rate 16 Blood Pressure 139/93 H Pulse Oximetry 100 Oxygen Delivery Method Oxygen Delivery Method Room Air Narrative Exam Narrative: Physical Exam: GENERAL: The patient is not in any acute distressed. Awake and alert. HEENT: Nonicteric sclerae, PERRLA, EOMI. Oropharynx clear. Moist mucous membranes. Conjunctivae appear well perfused. HEART: Regular rate and rhythm without murmurs. No lower extremities edema. LUNGS: Clear to auscultation bilaterally. No wheezing, crackles or rhonchi ABDOMEN: Soft, positive bowel sounds, nontender. SKIN: No rash, no excessive bruising, petechiae, or purpura. NEUROLOGIC: AxO x 3. Cranial nerves II-XII intact without motor/sensory deficit. Objective Labs 07/01/25 22:56 07/01/25 22:56 Labs: Laboratory Results - last 24 hr 07/01/25 07/02/25 22:56 00:58 WBC 5.0 RBC 4.76 Hgb 14.1 Hct 41.2 MCV 86.5 MCH 29.6 MCHC 34.2 RDW 13.7 Plt Count 245 Neut % (Auto) 63.0 Lymph % (Auto) 25.5 [place] % (Auto) 8.4 Eos % (Auto) 1.7 L Baso % (Auto) 1.4 Neut # (Auto) 3200 Lymph # (Auto) 1300 [place] # (Auto) 400 Eos # (Auto) 100 Baso # (Auto) 100 PT 11.2 INR 1.0 APTT 28 Sodium 136 L Potassium 4.0 Chloride 103 Carbon Dioxide 27 BUN 14 Creatinine 0.92 Estimated GFR > 60 BUN/Creatinine Ratio 15.2 Glucose 104 H Calcium 9.0 Magnesium 1.9 Total Bilirubin 0.6 AST 32 ALT 37 Alkaline Phosphatase 58 Total Creatine Kinase 125 Troponin I 0.017 < 0.012 NT-Pro-B Natriuret Pep 28 Total Protein 7.5 Albumin 4.6 Globulin 2.9 Albumin/Globulin Ratio 1.6 Lipase 125 Assessment & Plan Assessment & Plan narrative: Chest pain. Admit the patient to medical telemetry under observation. Again troponin negative x 2 and EKG showed no sign of acute ischemia. Chest x-ray was clear. ER physician did discuss the case with missile control pilot on-call Dr. Lafleur who is recommend that we admit the patient to monitor for any arrhythmia overnight and to check another Trope in the morning. If everything comes back negative including echocardiogram Dr. Bajwa suggest that we should have the patient follow-up with him as outpatient for cardiac stress test. Will also check A1c and lipid panel in the morning. Hypertension. Monitor blood pressure and resume home medication accordingly. Hyperlipidemia. As above will check lipid panel but resume home statin. GERD. Resume home PPI. DVT prophylaxis SCDs due to observational status. CODE STATUS full code. Disposition likely home in 1 to 2 days. - As the provider of this telehealth evaluation, requested by the patient's evaluating physician, I attest that I introduced myself to the patient, provided my credentials and determined that telemedicine via a real-time, 2 way interactive audio and video platform is an appropriate and effective means of providing this service. - I reviewed the patient's chart and had a discussion with the member of the patient's treatment team. - The patient and I mutually agreed with continuation of this evaluation via telemedicine. The patient consented for the telemedicine evaluation. - This virtual encounter was taken place from [place] by Dr. Ortiz Alejandre. The patient was evaluated at [facility]. The encounter was approximately 35 minutes. The nurse was present during the entire time of the encounter and was able assists with the stethoscope to listen to the patients. Time-Based Coding :: [TOTAL MINUTES] spent with patient and on the chart (including review of chart, obtaining history, exam, reviewing outside data, placing orders, documenting exam and treatment plan, and counseling patient) on [DATE].
[2025-07-02] MEDS: PANTOPRAZOLE DR 20 MG TABLET PO (05:20)
[2025-07-02 06:55] LABS: Add Manual Diff / Slide Review NO; Hematocrit 40.6 % (41-53); Hemoglobin 14.1 g/dL (13.5-17.5); Lymphocytes Absolute Auto 1400 /uL (1100-4500); Mean Corpuscular HGB Conc 34.6 % (30-36); Mean Corpuscular Hemoglobin 29.8 PG (26-34); Mean Corpuscular Volume 86.0 fL (80-100); Platelet Count 244 X10^3/uL (150-400)
[2025-07-02 07:07] LABS: Hemoglobin A1C% w Est Avg Glu 5.6 % (4.0-6.0)
--- NOTE | 2025-07-02 07:14 | P.HP_ITS ---
History of Present Illness History of Present Illness Date Patient Seen: 07/02/25 Chief complaint: prior chest pain, b/p changes after eating Narrative: Chief complaint: prior chest pain, b/p changes after eating Narrative: 64-year-old male with past medical history of hypertension, hyperlipidemia and acid reflux presents with intermittent chest pain. Per the patient's report, over the last 2 months, the patient has been having intermittent chest pain. The patient states that his chest pain usually followed after acute onset of flushing sensation and numbness and tingling in both of his hands. The patient also states that his chest pain is pressure-like/tightness across both of his chest. The patient also experienced some shortness of breath during the event and some palpitation. Otherwise the patient denies any syncope related to this chest pressure. The patient also denies any recent fever, chills, nausea, vomiting, diarrhea or dysuria. The patient has been in the ER once over the last 48 hours and this is his second visit. The patient had negative tropes x 2, no acute finding on EKG to suggest ischemia and a CT angio of the chest and abdomen that were normal. The patient was discharged from our ER 2 days ago but states that he had 2 more events and so he was concerned to come back to the ER today. The patient denies any known history of coronary disease or stroke. In the emergency room, the patient was hemodynamically stable. Again troponin negative x 2 and EKG showed no sign of acute ischemia. Other labs were relatively benign. Chest x-ray was clear. ER physician did discuss the case with supervisor mattress and boxsprings on-call Dr. Lafleur who is recommend that we admit the patient to monitor for any arrhythmia overnight and to check another Trope in the morning. If everything comes back negative including echocardiogram Dr. Bajwa suggest that we should have the patient follow-up with him as outpatient for cardiac stress test. 1.3 cm soft tissue nodule within the anterior mediastinum. This may represent a prominent lymph node. However, given location other etiologies including malignancy cannot be excluded. Short interval follow-up, biopsy or PET scan is recommended. Narrative Exam Narrative: Physical Exam: GENERAL: The patient is not in any acute distressed. Awake and alert. HEENT: Nonicteric sclerae, PERRLA, EOMI. Oropharynx clear. Moist mucous membranes. Conjunctivae appear well perfused. HEART: Regular rate and rhythm without murmurs. No lower extremities edema. LUNGS: Clear to auscultation bilaterally. No wheezing, crackles or rhonchi ABDOMEN: Soft, positive bowel sounds, nontender. SKIN: No rash, no excessive bruising, petechiae, or purpura. NEUROLOGIC: AxO x 3. Cranial nerves II-XII intact without motor/sensory deficit. Objective Labs 07/01/25 22:56 07/01/25 22:56 Labs: Laboratory Results - last 24 hr 07/01/25 07/02/25 22:56 00:58 WBC 5.0 RBC 4.76 Hgb 14.1 Hct 41.2 MCV 86.5 MCH 29.6 MCHC 34.2 RDW 13.7 Plt Count 245 Neut % (Auto) 63.0 Lymph % (Auto) 25.5 [place] % (Auto) 8.4 Eos % (Auto) 1.7 L Baso % (Auto) 1.4 Neut # (Auto) 3200 Lymph # (Auto) 1300 [place] # (Auto) 400 Eos # (Auto) 100 Baso # (Auto) 100 PT 11.2 INR 1.0 APTT 28 Sodium 136 L Potassium 4.0 Chloride 103 Carbon Dioxide 27 BUN 14 Creatinine 0.92 Estimated GFR > 60 BUN/Creatinine Ratio 15.2 Glucose 104 H Calcium 9.0 Magnesium 1.9 Total Bilirubin 0.6 AST 32 ALT 37 Alkaline Phosphatase 58 Total Creatine Kinase 125 Troponin I 0.017 < 0.012 NT-Pro-B Natriuret Pep 28 Total Protein 7.5 Albumin 4.6 Globulin 2.9 Albumin/Globulin Ratio 1.6 Lipase 125 Assessment & Plan Assessment & Plan narrative: Chest pain. Admit the patient to medical telemetry under observation. Again troponin negative x 2 and EKG showed no sign of acute ischemia. Chest x-ray was clear. ER physician did discuss the case with supervisor mattress and boxsprings on-call Dr. Lafleur who is recommend that we admit the patient to monitor for any arrhythmia overnight and to check another Trope in the morning. If everything comes back negative including echocardiogram Dr. Bajwa suggest that we should have the patient follow-up with him as outpatient for cardiac stress test. Will also check A1c and lipid panel in the morning. Hypertension. Monitor blood pressure and resume home medication accordingly. Hyperlipidemia. As above will check lipid panel but resume home statin. GERD. Resume home PPI. DVT prophylaxis SCDs due to observational status. CODE STATUS full code. Disposition likely home in 1 to 2 days. [facility] Medical History (Updated 07/02/25 @ 07:15 by Sal Fernandez MD) GERD (gastroesophageal reflux disease) HLD (hyperlipidemia) HTN (hypertension) Social History household members: spouse Smoking Status: Never smoker Meds Home Medications and Allergies Home Medications ?Medication ?Instructions ?Recorded ?Confirmed ?Type amlodipine 5 mg tablet 5 mg PO DAILY 07/01/2507/01 History omeprazole 20 mg capsule,delayed 20 mg PO DAILY 07/01/25 History release rosuvastatin 20 mg tablet 20 mg PO DAILY 07/01/2506/20 History Allergies Allergy/AdvReac Type Severity Reaction Status Date / Time No Known Allergies Allergy Verified 06/30/25 18:37 Exam Vital Signs (past 8 hours): - 07/01/25 23:30 07/01/25 23:30 07/02/25 00:00 Temperature Pulse Rate 67 Respiratory Rate 17 Blood Pressure 147/87 H 137/88 Pulse Oximetry 96 Oxygen Delivery Method 07/02/25 00:00 07/02/25 00:30 07/02/25 00:30 Temperature Pulse Rate 62 61 Respiratory Rate 16 16 Blood Pressure 128/85 Pulse Oximetry 97 95 Oxygen Delivery Method 07/02/25 00:59 07/02/25 00:59 07/02/25 01:00 Temperature Pulse Rate 60 Respiratory Rate 20 Blood Pressure 153/90 H 146/90 H Pulse Oximetry 97 Oxygen Delivery Method 07/02/25 01:00 07/02/25 01:30 07/02/25 01:30 Temperature Pulse Rate 62 60 Respiratory Rate 10 L 15 Blood Pressure 146/89 H Pulse Oximetry 98 97 Oxygen Delivery Method 07/02/25 02:00 07/02/25 02:00 07/02/25 02:30 Temperature Pulse Rate 58 L Respiratory Rate 11 L Blood Pressure 148/93 H 140/86 Pulse Oximetry 97 Oxygen Delivery Method 07/02/25 02:30 07/02/25 02:40 07/02/25 02:56 Temperature Pulse Rate 58 L Respiratory Rate 14 Blood Pressure Pulse Oximetry 97 Oxygen Delivery Method Room Air Room Air 07/02/25 03:00 Temperature 96.6 F L Pulse Rate 68 Respiratory Rate 16 Blood Pressure 139/93 H Pulse Oximetry 100 Oxygen Delivery Method Oxygen Delivery Method Room Air Objective Labs 07/02/25 06:03 07/02/25 06:03 Labs: Laboratory Results - last 24 hr 07/01/25 07/02/25 07/02/25 22:56 00:58 06:03 WBC 5.0 5.3 RBC 4.76 4.72 Hgb 14.1 14.1 Hct 41.2 40.6 L MCV 86.5 86.0 MCH 29.6 29.8 MCHC 34.2 34.6 RDW 13.7 13.8 Plt Count 245 244 Neut % (Auto) 63.0 60.9 Lymph % (Auto) 25.5 26.8 [place] % (Auto) 8.4 8.6 Eos % (Auto) 1.7 L 2.3 Baso % (Auto) 1.4 1.4 Neut # (Auto) 3200 3300 Lymph # (Auto) 1300 1400 [place] # (Auto) 400 500 Eos # (Auto) 100 100 Baso # (Auto) 100 100 PT 11.2 INR 1.0 APTT 28 Sodium 136 L Potassium 4.0 Chloride 103 Carbon Dioxide 27 BUN 14 Creatinine 0.92 Estimated GFR > 60 BUN/Creatinine Ratio 15.2 Glucose 104 H Hemoglobin A1c 5.6 Calcium 9.0 Magnesium 1.9 Total Bilirubin 0.6 AST 32 ALT 37 Alkaline Phosphatase 58 Total Creatine Kinase 125 Troponin I 0.017 < 0.012 NT-Pro-B Natriuret Pep 28 Total Protein 7.5 Albumin 4.6 Globulin 2.9 Albumin/Globulin Ratio 1.6 Lipase 125 Assessment & Plan Time-Based Coding :: [TOTAL MINUTES] spent with patient and on the chart (including review of chart, obtaining history, exam, reviewing outside data, placing orders, documenting exam and treatment plan, and counseling patient) on [DATE].
[2025-07-02 07:24] LABS: Troponin I < 0.012 ng/mL (0.01-0.034)
[2025-07-02 07:37] LABS: Blood Urea Nitrogen 12 mg/dL (9-20); Calcium 9.0 mg/dL (8.4-10.2); Carbon Dioxide 27 mmol/L (22-32); Chloride 103 mmol/L (98-107); Cholesterol 193 mg/dL (140-199); Estimated Glomerular Filt Rate > 60 mL/min (>60); Glucose 86 mg/dL (70-99); HDL Cholesterol 49 mg/dL (40-60); HEMOLYSIS < 15 (0-50); Potassium 4.4 mmol/L (3.4-5.1); Sodium 138 mmol/L (137-145); Triglycerides 75 mg/dL (35-150)
[2025-07-02] MEDS: SODIUM CHLORIDE 0.9% FLUSH 10 ML IV (09:41)
--- NOTE | 2025-07-02 12:46 | CM.DANOTE ---
DCP Assessment note Pt is a 64yo M with PMH of hypertension is admitted for chest pain r/o. no hx of admits. SOPHIE reviewed EMR. per chart, pt lives at home indep with spouse Jo in [place]. drives. per chart review/provider in morning rounds, per cardiology rec, will plan for echo and repeat tropes here today. pending results anticipate dc home after and F/u in OP setting. pt getting echo during attempted assessment. per chart review/provider report, likely no DCP/CM needs. P: pending echo/lab results anticipate home today with OP f/u likely. 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 No History Provided By Patient,Family Member Prior Living House Arrangements Household Members spouse Type of Drives own vehicle transporation used prior to admit Barriers to No Discharge Discharge Plan Home Referrals Initiated None needed Review Status In Process Please Provide Date 07/02/25 Initial DC Assessment Was Performed Next Review Type Continued Stay Review
--- NOTE | 2025-07-02 15:19 | PM.DS.1 ---
History of Present Illness History of Present Illness Chief complaint: prior chest pain, b/p changes after eating Narrative: Chief complaint: prior chest pain, b/p changes after eating Narrative: 64-year-old male with past medical history of hypertension, hyperlipidemia and acid reflux presents with intermittent chest pain. Per the patient's report, over the last 2 months, the patient has been having intermittent chest pain. The patient states that his chest pain usually followed after acute onset of flushing sensation and numbness and tingling in both of his hands. The patient also states that his chest pain is pressure-like/tightness across both of his chest. The patient also experienced some shortness of breath during the event and some palpitation. Otherwise the patient denies any syncope related to this chest pressure. The patient also denies any recent fever, chills, nausea, vomiting, diarrhea or dysuria. The patient has been in the ER once over the last 48 hours and this is his second visit. The patient had negative tropes x 2, no acute finding on EKG to suggest ischemia and a CT angio of the chest and abdomen that were normal. The patient was discharged from our ER 2 days ago but states that he had 2 more events and so he was concerned to come back to the ER today. The patient denies any known history of coronary disease or stroke. In the emergency room, the patient was hemodynamically stable. Again troponin negative x 2 and EKG showed no sign of acute ischemia. Other labs were relatively benign. Chest x-ray was clear. ER physician did discuss the case with supervisor inspection and testing on-call Dr. Lafleur who is recommend that we admit the patient to monitor for any arrhythmia overnight and to check another Trope in the morning. If everything comes back negative including echocardiogram Dr. Bajwa suggest that we should have the patient follow-up with him as outpatient for cardiac stress test. Also noted on a CT chest done the day previous to this admission: 1.3 cm soft tissue nodule within the anterior mediastinum. This may represent a prominent lymph node. However, given location other etiologies including malignancy cannot be excluded. Short interval follow-up, biopsy or PET scan is recommended. Discharge Providers Provider Date of admission: 07/02/25 02:14 Discharge Date: 07/02/25 Primary care physician: Viktoria Resendez PA-C Consults: 07/02/25 02:15 Consult to Cardiology Stat Comment: Consulting Provider: Marcell Patten Reason for consultation: palpitations, chest pain Has provider been notified: Yes Discharge provider: Sal Fernandez MD Summary Hospital Course Hospital Course: Atypical Chest pain. Troponins normal X 3 and EKG showed no sign of acute ischemia. Chest x-ray was clear. CTA was done the day previous to this admission, ruling out PE. The ED physician discussed the case with supervisor inspection and testing Dr. Patten who recommended admission for arrhythmia monitoring and follow-up troponin. The echocardiogram was read as normal. EF 55-60%. If everything comes back negative including echocardiogram Dr. Patten suggested follow-up with him as outpatient for cardiac stress test. A1c was 5.6 and total cholesterol 193 with LDL 129 Hypertension. Continued on amlodipine. Hyperlipidemia. Continue statin therapy GERD. Increase Omeprazole to 20 mg BID. Mediastinal Mass: CT shows a 1.3 cm soft tissue nodule within the anterior mediastinum. This may represent a prominent lymph node. However, given location other etiologies including malignancy cannot be excluded. Short interval follow-up, biopsy or PET scan is recommended. We discussed repeating the CT in 3 months. He will discuss that with his PCP. In summary: I visited with the patient in the morning for an extended period of time and then again in the afternoon, this time with his present. They both state that he does not have a baseline anxiety problem but he seems to be understandably quite anxious about this issue. He is also having headaches, mild but continuous, on the top of his head that appear to be caffeine withdrawal related as he has been cutting back on coffee. He seems to be appropriately focused on following up with Cardiology for the treadmill test later this week. I advised increasing the omeprazole to twice daily. Status at Discharge Cognitive/behavioral status at discharge: agitated Functional status at discharge: independent ambulation Overall status at discharge: patient is back to baseline Time Spent with Patient Time spent: Greater than 30 minutes Exam Vital Signs (past 8 hours): - 07/02/25 08:39 07/02/25 12:00 Temperature 97.3 F L 96.7 F L Pulse Rate 63 59 L Respiratory Rate 13 15 Blood Pressure 123/80 126/80 Pulse Oximetry 98 97 Oxygen Flow Rate 0 0 Oxygen Delivery Method Room Air Oxygen Flow Rate 0 Narrative Exam Narrative: GENERAL: The patient is mildly distressed by headache and worry. Awake and alert. HEENT: Nonicteric sclerae, PERRLA, EOMI. Oropharynx clear. Moist mucous membranes. Conjunctivae appear well perfused. HEART: Regular rate and rhythm without murmurs. No lower extremities edema. LUNGS: Clear to auscultation bilaterally. No wheezing, crackles or rhonchi ABDOMEN: Soft, positive bowel sounds, nontender. SKIN: No rash, no excessive bruising, petechiae, or purpura. NEUROLOGIC: AxO x 3. Cranial nerves II-XII intact without motor/sensory deficit. Objective Labs 07/02/25 06:03 07/02/25 06:03 Labs: Laboratory Results - last 24 hr 07/01/25 07/02/25 07/02/25 22:56 00:58 06:03 WBC 5.0 5.3 RBC 4.76 4.72 Hgb 14.1 14.1 Hct 41.2 40.6 L MCV 86.5 86.0 MCH 29.6 29.8 MCHC 34.2 34.6 RDW 13.7 13.8 Plt Count 245 244 Neut % (Auto) 63.0 60.9 Lymph % (Auto) 25.5 26.8 [place] % (Auto) 8.4 8.6 Eos % (Auto) 1.7 L 2.3 Baso % (Auto) 1.4 1.4 Neut # (Auto) 3200 3300 Lymph # (Auto) 1300 1400 [place] # (Auto) 400 500 Eos # (Auto) 100 100 Baso # (Auto) 100 100 PT 11.2 INR 1.0 APTT 28 Sodium 136 L 138 Potassium 4.0 4.4 Chloride 103 103 Carbon Dioxide 27 27 BUN 14 12 Creatinine 0.92 0.89 Estimated GFR > 60 > 60 BUN/Creatinine Ratio 15.2 13.5 Glucose 104 H 86 Hemoglobin A1c 5.6 Calcium 9.0 9.0 Magnesium 1.9 Total Bilirubin 0.6 AST 32 ALT 37 Alkaline Phosphatase 58 Total Creatine Kinase 125 Troponin I 0.017 < 0.012 < 0.012 NT-Pro-B Natriuret Pep 28 Total Protein 7.5 Albumin 4.6 Globulin 2.9 Albumin/Globulin Ratio 1.6 Triglycerides 75 Cholesterol 193 LDL Cholesterol, Calc 129 H HDL Cholesterol 49 Lipase 125 [facility] Medical History (Updated 07/02/25 @ 07:15 by Sal Fernandez MD) GERD (gastroesophageal reflux disease) HLD (hyperlipidemia) HTN (hypertension) Social History household members: spouse Smoking Status: Never smoker Discharge Plan Discharge Plan Patient Disposition: Home Provider Discharge Comment: Follow up with PAC Viktoria Resendez and also with Electronic [employer] Operator Dr. Patten in the next 1-2 weeks. Discharge orders & Medications Prescriptions: Continued amlodipine 5 mg tablet 5 mg PO DAILY rosuvastatin 20 mg tablet 20 mg PO DAILY omeprazole 20 mg capsule,delayed release(DR/EC) 20 mg PO DAILY Follow up/Referrals: Viktoria Resendez PA-C [Primary Care Provider, Medical] Diet/Activity/Treatments Diet: Low-cholesterol Visit Report/Discharge Packet Instructions: DI for Atypical Chest Pain Stand Alone Forms: Patient Portal/API, Stroke Signs & Symptoms Discharge Data Primary Care Provider: Viktoria Resendez Attending Provider: Ortiz Alejandre Date/Time: 07/02/25 02:14
--- NOTE | 2025-07-02 15:44 | PC.NURSE ---
Patient d/c teaching done at bedside with spouse present. Lots of discussion was had regarding est. with new PCP, plastering supervisor and gastro prov. Pt questions and concerns were addressed. IV and tele removed. pt to call when ready for escort to private vehicle.
== END 2025-07-02 15:50 | disposition home or self-care (01) ==
LOC: ED 23:12 → AC 07-02 02:15
PROVIDERS: Emergency Medicine; Admitting Provider Internal Medicine; Emergency Provider Emergency Medicine; PCP Physician Assistant; Visit Provider Internal Medicine
DX: R07.89 Other chest pain (principal); R61 Generalized hyperhidrosis; I10 Essential (primary) hypertension; E78.5 Hyperlipidemia, unspecified; K21.9 Gastro-esophageal reflux disease without esophagitis; R93.5 Abnormal findings on diagnostic imaging of other abdominal regions, including retroperitoneum
CPT/HCPCS: 36415; 71045; 80048; 80053; 80061; 82550; 83036; 83690; 83735; 83880; 84484; 85025; 85610; 85730; 93005; 93306; 99284; G0378